=== PATIENT | male | born 1955 | race Two or more races ===

== ENCOUNTER 2018-04-22 10:12 | Inpatient (IN) | payer MEDICAID, OTHER ==
[~2018-04-22] VITALS: Ht 182.9 cm; Wt 138.0 kg
[~2018-04-22 10:12] MED LIST: ENAL10TA86; WARF7.5T
[2018-04-22] MEDS ORDERED: SODIUM CHLORIDE 0.9% 1,000 ML IV ONE (10:39)
[2018-04-22 11:20] LABS: Hematocrit 44.4 % (41.0-53.0); Hemoglobin 15.2 g/dL (13.5-17.5); Mean Corpuscular Hemoglobin 30.5 pg (28.0-32.0); Mean Corpuscular Hgb Conc. 34.1 g/dL (32.0-36.0); Mean Corpuscular Volume 89.3 fL (80.0-100.0); Platelet Count (auto) 173 10^3/uL (140-450); Red Blood Cells 4.98 10^6/uL (4.5-5.90); Red Cell Distribution Width 13.4 % (11.8-14.3); White Blood Cell 15.2 10^3/uL (4.4-10.8)
[2018-04-22 11:30] LABS: INR 3.07 (0.9-1.15); Partial Thromboplastin Time 57.4 sec (23.78-33.04); Prothrombin Time 30.8 sec (9.27-12.13)
[2018-04-22] MEDS ORDERED: VANCOMYCIN 1GM/250ML 250 ML IV ONE (11:30)
[2018-04-22] MEDS ORDERED: metroNIDAZOLE 500MG/100ML 100 ML IV ONE (11:30)
[2018-04-22 11:40] LABS: Albumin 3.2 g/dL (3.4-5.0); BUN/Creatinine Ratio 14.8; Bilirubin, Total 1.2 mg/dL (0.2-1.0); Calcium 8.7 mg/dL (8.5-10.1); Potassium 4.2 mmol/L (3.5-5.1); Total Protein 8.2 g/dL (6.4-8.2)
[2018-04-22 11:46] LABS: Magnesium 1.6 mg/dL (1.6-2.6)
[2018-04-22 12:22] LABS: Basophils % (manual) 0 (0.0-2.0); Blast Cells 0; Eosinophils % (manual) 0 (0-7); Myelocytes % 0; Promyelocytes % 0; Reactive Lymphocytes 0
[2018-04-22 13:07] LABS: Band Neutrophils % (manual) 2; Lymphocytes % (manual) 1 (10.0-50.0); Metamyelocytes % 1; Monocytes % (manual) 5 (0-12)
[2018-04-22 14:14] LABS: Alcohol, Urine < 3.0 mg/dL (0-5); Amphetamine Screen, Urine POSITIVE (NEGATIVE); Barbiturate Scree,Urine NEGATIVE (NEGATIVE); Benzodiazephine Screen, Urine NEGATIVE (NEGATIVE); Cannabinoid Screen, Urine POSITIVE (NEGATIVE); Cocaine Screen, Urine NEGATIVE (NEGATIVE); Opiate Scree,Urine NEGATIVE (NEGATIVE)
[2018-04-22 14:21] LABS: Phencyclidine Screen, Urine NEGATIVE (NEGATIVE)
[2018-04-22] MEDS ORDERED: ONDANSETRON HCL 4 MG/2 ML VIAL IV ONE (14:30)
[2018-04-22] MEDS ORDERED: PANTOPRAZOLE 40 MG TAB PO ONE (14:30)
[2018-04-22] MEDS ORDERED: LORazepam 0.5 MG TAB PO PRN (16:30)
[2018-04-22] MEDS ORDERED: NITROGLYCERIN 0.4 MG SL TAB SL PRN (16:30)
[2018-04-22] MEDS ORDERED: PROMETHAZINE HCL 25 MG/ML 1ML IV PRN (16:30)
[2018-04-22] MEDS ORDERED: LACTULOSE 20Gm/30ML SOLN PO PRN (16:30)
[2018-04-22] MEDS ORDERED: DEXTROSE (50%) 50ML SYRG IV PRN (16:30)
[2018-04-22] MEDS ORDERED: PIPERACILLIN-TAZOB 3.375GM 100 ML IV ONE (16:30)
[2018-04-22] MEDS ORDERED: MORPHINE SULF INJ 2 MG/ML SYRINGE 1ML IV PRN ×2 (16:30)
[2018-04-22] MEDS ORDERED: traMADol HCL 50 MG TAB PO PRN (16:30)
[2018-04-22] MEDS: SODIUM CHLORIDE 0.9% 1,000 ML IV SCH (17:00)
[2018-04-22 17:04] LABS: Urine Amorphous Crystal MOD /hpf (None Seen); Urine Bacteria MOD /hpf (None Seen); Urine Blood 1+ /uL (Negative); Urine Mucus FEW (None Seen); Urine Specific Gravity 1.031 (1.001-1.035); Urine WBC 75 /hpf (0 - 3); Urine WBC Clumps PRESENT /hpf (None Seen)
[2018-04-22] MEDS: ACCU-CHEK COMFORT CURVE STRIP VI SCH (18:25)
[2018-04-22 19:40] VITALS: BP 162/74
[2018-04-22] MEDS: ACETAMINOPHEN 500 MG TAB PO PRN (20:45)
[2018-04-22 23:00] VITALS: BP 134/80
[2018-04-22 23:01] VITALS: BP 162/74
[2018-04-23] VITALS (7 sets, daily range): BP systolic 112–154; BP diastolic 60–73
[2018-04-23] MEDS: PIPERACILLIN-TAZOB 3.375GM 100 ML IV SCH ×5 (00:03→23:49)
[2018-04-23] MEDS: ACCU-CHEK COMFORT CURVE STRIP VI SCH ×5 (00:03→23:57)
[2018-04-23] MEDS: SODIUM CHLORIDE 0.9% 1,000 ML IV SCH ×3 (02:35→22:45)
[2018-04-23 06:56] LABS: Basophils # (auto) 0 uL; Basophils % (auto) 0.2 % (0.0-2.0); Eosinophils # (auto) 0 uL; Hematocrit 40.8 % (41.0-53.0); Hemoglobin 13.9 g/dL (13.5-17.5); Lymphocytes # (auto) 0.4 uL; Lymphocytes % (auto) 2.5 % (10.0-50.0); Mean Corpuscular Hemoglobin 30.3 pg (28.0-32.0); Mean Corpuscular Hgb Conc. 33.9 g/dL (32.0-36.0); Mean Corpuscular Volume 89.4 fL (80.0-100.0); Monocytes # (auto) 1.4 uL; Monocytes % (auto) 7.5 % (0.0-12.0); Neutrophils # (auto) 16.4 uL; Neutrophils % (auto) 89.8 % (37.0-80.0); Nucleated Red Blood Cells % 0.1 %; Platelet Count (auto) 142 10^3/uL (140-450); Red Blood Cells 4.57 10^6/uL (4.5-5.90); Red Cell Distribution Width 13.2 % (11.8-14.3); White Blood Cell 18.3 10^3/uL (4.4-10.8)
[2018-04-23 07:10] LABS: Albumin 2.7 g/dL (3.4-5.0); BUN/Creatinine Ratio 14.6; Calcium 8.6 mg/dL (8.5-10.1); Potassium 4.5 mmol/L (3.5-5.1); Total Protein 7.3 g/dL (6.4-8.2)
[2018-04-23 08:59] LABS: INR 1.89 (0.9-1.15); Partial Thromboplastin Time 51.3 sec (23.78-33.04); Prothrombin Time 19.5 sec (9.27-12.13)
[2018-04-23] MEDS: ENALAPRIL MALEATE 10 MG TAB PO SCH (10:03)
[2018-04-23] MEDS: PANTOPRAZOLE 40 MG TAB PO SCH (10:03)
[2018-04-23] MEDS: metroNIDAZOLE 500 MG TAB PO SCH ×3 (13:28→23:49)
[2018-04-23] MEDS ORDERED: WARFARIN SODIUM 2.5 MG TAB PO ONE (17:00)
[2018-04-23] MEDS: ACETAMINOPHEN 500 MG TAB PO PRN (17:22)
[2018-04-23] MEDS: MULTIPLE VITAMIN TAB PO SCH (18:40)
[2018-04-23] MEDS: ASCORBIC ACID 500 MG TAB PO SCH (21:43)
[2018-04-23] MEDS: LOPERAMIDE HCL 2 MG CAP PO PRN (23:50)
[2018-04-24 04:56] VITALS: BP 141/71
[2018-04-24] MEDS: PIPERACILLIN-TAZOB 3.375GM 100 ML IV SCH ×3 (06:06→18:39)
[2018-04-24] MEDS: metroNIDAZOLE 500 MG TAB PO SCH (06:06)
[2018-04-24] MEDS: ACCU-CHEK COMFORT CURVE STRIP VI SCH ×3 (06:06→18:00)
[2018-04-24 06:39] LABS: Basophils # (auto) 0 uL; Basophils % (auto) 0.2 % (0.0-2.0); Eosinophils # (auto) 0 uL; Eosinophils % (auto) 0.1 % (0.0-7.0); Hematocrit 37.8 % (41.0-53.0); Hemoglobin 13.2 g/dL (13.5-17.5); Lymphocytes # (auto) 0.6 uL; Lymphocytes % (auto) 4.9 % (10.0-50.0); Mean Corpuscular Hemoglobin 31.3 pg (28.0-32.0); Mean Corpuscular Hgb Conc. 34.9 g/dL (32.0-36.0); Mean Corpuscular Volume 89.5 fL (80.0-100.0); Monocytes # (auto) 1.5 uL; Monocytes % (auto) 11.7 % (0.0-12.0); Neutrophils # (auto) 10.8 uL; Neutrophils % (auto) 83.1 % (37.0-80.0); Nucleated Red Blood Cells % 0.1 %; Platelet Count (auto) 129 10^3/uL (140-450); Red Blood Cells 4.22 10^6/uL (4.5-5.90); Red Cell Distribution Width 13.6 % (11.8-14.3)
[2018-04-24 07:05] LABS: Albumin 2.4 g/dL (3.4-5.0); Bilirubin, Total 0.8 mg/dL (0.2-1.0); Calcium 8.1 mg/dL (8.5-10.1); Magnesium 2.2 mg/dL (1.6-2.6); Potassium 4.3 mmol/L (3.5-5.1)
[2018-04-24 08:00] VITALS: BP 140/82
[2018-04-24 09:00] VITALS: BP 136/68
[2018-04-24] MEDS: SODIUM CHLORIDE 0.9% 1,000 ML IV SCH ×2 (09:00→10:30)
[2018-04-24] MEDS: ENALAPRIL MALEATE 10 MG TAB PO SCH (09:39)
[2018-04-24] MEDS: PANTOPRAZOLE 40 MG TAB PO SCH (09:39)
[2018-04-24] MEDS: ASCORBIC ACID 500 MG TAB PO SCH ×2 (09:39→21:40)
[2018-04-24] MEDS: ACETAMINOPHEN 500 MG TAB PO PRN ×2 (09:39→21:40)
[2018-04-24] MEDS: MULTIPLE VITAMIN TAB PO SCH (09:39)
[2018-04-24 10:36] LABS: INR 1.82 (0.9-1.15); Partial Thromboplastin Time 49.3 sec (23.78-33.04); Prothrombin Time 18.8 sec (9.27-12.13)
[2018-04-24] MEDS: LOPERAMIDE HCL 2 MG CAP PO PRN (12:03)
[2018-04-24 13:00] VITALS: BP 121/66
[2018-04-24 17:00] VITALS: BP 120/61
[2018-04-24] MEDS ORDERED: WARFARIN SODIUM 2.5 MG TAB PO ONE (17:00)
[2018-04-24 21:52] VITALS: BP 130/63
[2018-04-25] MEDS: ACCU-CHEK COMFORT CURVE STRIP VI SCH ×5 (00:11→23:32)
[2018-04-25] MEDS: PIPERACILLIN-TAZOB 3.375GM 100 ML IV SCH ×5 (00:11→23:32)
[2018-04-25] MEDS: SODIUM CHLORIDE 0.9% 1,000 ML IV SCH ×2 (02:55→19:50)
[2018-04-25 04:54] VITALS: BP 127/66
[2018-04-25 06:41] LABS: Basophils # (auto) 0 uL; Basophils % (auto) 0.3 % (0.0-2.0); Eosinophils # (auto) 0 uL; Eosinophils % (auto) 0.1 % (0.0-7.0); Hematocrit 36.2 % (41.0-53.0); Hemoglobin 12.3 g/dL (13.5-17.5); Lymphocytes # (auto) 0.9 uL; Lymphocytes % (auto) 5.9 % (10.0-50.0); Mean Corpuscular Hemoglobin 30.6 pg (28.0-32.0); Mean Corpuscular Volume 89.9 fL (80.0-100.0); Monocytes # (auto) 1.4 uL; Monocytes % (auto) 9.6 % (0.0-12.0); Neutrophils # (auto) 12.4 uL; Neutrophils % (auto) 84.1 % (37.0-80.0); Platelet Count (auto) 147 10^3/uL (140-450); Red Blood Cells 4.03 10^6/uL (4.5-5.90); Red Cell Distribution Width 13.3 % (11.8-14.3); White Blood Cell 14.7 10^3/uL (4.4-10.8)
[2018-04-25 06:55] LABS: BUN/Creatinine Ratio 13.8; Calcium 8.1 mg/dL (8.5-10.1); Potassium 3.8 mmol/L (3.5-5.1)
[2018-04-25 07:29] LABS: INR 2.16 (0.9-1.15); Prothrombin Time 22.1 sec (9.27-12.13)
[2018-04-25 08:00] VITALS: BP 136/68
[2018-04-25] MEDS: ENALAPRIL MALEATE 10 MG TAB PO SCH (08:53)
[2018-04-25] MEDS: PANTOPRAZOLE 40 MG TAB PO SCH (08:54)
[2018-04-25] MEDS: MULTIPLE VITAMIN TAB PO SCH (08:54)
[2018-04-25] MEDS: ASCORBIC ACID 500 MG TAB PO SCH ×2 (08:54→21:24)
[2018-04-25 09:00] VITALS: BP 125/60
[2018-04-25 13:22] VITALS: BP 155/66
[2018-04-25 17:00] VITALS: BP 153/69
[2018-04-25] MEDS ORDERED: WARFARIN SODIUM 2.5 MG TAB PO ONE (17:00)
[2018-04-25] MEDS: ACETAMINOPHEN 500 MG TAB PO PRN (17:09)
[2018-04-25] MEDS: LOPERAMIDE HCL 2 MG CAP PO PRN (21:24)
[2018-04-25 21:53] VITALS: BP 133/64
[2018-04-26] MEDS: TEMAZEPAM 15 MG CAP PO PRN (00:42)
[2018-04-26] MEDS: PIPERACILLIN-TAZOB 3.375GM 100 ML IV SCH ×2 (05:52→12:04)
[2018-04-26] MEDS: ACCU-CHEK COMFORT CURVE STRIP VI SCH ×3 (05:52→17:55)
[2018-04-26 05:54] VITALS: BP 123/59
[2018-04-26 06:35] LABS: Basophils # (auto) 0.1 uL; Basophils % (auto) 0.4 % (0.0-2.0); Eosinophils # (auto) 0.1 uL; Eosinophils % (auto) 0.7 % (0.0-7.0); Hematocrit 35.5 % (41.0-53.0); Hemoglobin 12.1 g/dL (13.5-17.5); Lymphocytes % (auto) 7.7 % (10.0-50.0); Mean Corpuscular Hemoglobin 30.6 pg (28.0-32.0); Mean Corpuscular Volume 89.9 fL (80.0-100.0); Monocytes # (auto) 1.2 uL; Monocytes % (auto) 9.2 % (0.0-12.0); Neutrophils # (auto) 10.7 uL; Platelet Count (auto) 168 10^3/uL (140-450); Red Blood Cells 3.95 10^6/uL (4.5-5.90); Red Cell Distribution Width 13.5 % (11.8-14.3); White Blood Cell 13.1 10^3/uL (4.4-10.8)
[2018-04-26 06:54] LABS: INR 3.3 (0.9-1.15); Partial Thromboplastin Time 59.8 sec (23.78-33.04)
[2018-04-26 06:57] LABS: BUN/Creatinine Ratio 12.6; Calcium 7.9 mg/dL (8.5-10.1); Potassium 4.7 mmol/L (3.5-5.1)
[2018-04-26 08:00] VITALS: BP 125/60
[2018-04-26] MEDS ORDERED: VANCOMYCIN PER PHARMACY 0 MG IV SCH (08:45)
[2018-04-26 09:00] VITALS: BP_SYST 116; BP_SYST 140; BP_DIAS 58; BP_DIAS 69
[2018-04-26] MEDS: PANTOPRAZOLE 40 MG TAB PO SCH (09:24)
[2018-04-26] MEDS: ASCORBIC ACID 500 MG TAB PO SCH ×2 (09:24→22:38)
[2018-04-26] MEDS: VANCOMYCIN 1,250 MG in D5W 5% 250 ML IV SCH ×2 (09:25→21:32)
[2018-04-26] MEDS: MULTIPLE VITAMIN TAB PO SCH (09:25)
[2018-04-26] MEDS: ENALAPRIL MALEATE 10 MG TAB PO SCH (09:25)
[2018-04-26] MEDS: SODIUM CHLORIDE 0.9% 1,000 ML IV SCH (12:28)
[2018-04-26 13:00] VITALS: BP 130/72
[2018-04-26] MEDS ORDERED: LEVOFLOXACIN 500MG 100 ML IV ONE (13:30)
[2018-04-26] MEDS ORDERED: NAPROXEN 500 MG TAB PO ONE (14:00)
[2018-04-26] MEDS: FLORASTOR (S. BOULARDII) 250 MG CAP PO SCH (14:12)
[2018-04-26 16:41] VITALS: BP 114/55
[2018-04-26 22:00] VITALS: BP 121/66
[2018-04-26] MEDS: NAPROXEN 500 MG TAB PO SCH (22:38)
[2018-04-26] MEDS: CLINDAMYCIN 600MG IV 50 ML IV SCH (23:51)
[2018-04-27] MEDS: ACCU-CHEK COMFORT CURVE STRIP VI SCH ×5 (00:02→23:19)
[2018-04-27] MEDS: SODIUM CHLORIDE 0.9% 1,000 ML IV SCH ×2 (04:55→11:15)
[2018-04-27 05:00] VITALS: BP 127/67
[2018-04-27] MEDS: CLINDAMYCIN 600MG IV 50 ML IV SCH ×3 (07:00→21:54)
[2018-04-27 07:05] LABS: Hematocrit 35.8 % (41.0-53.0); Hemoglobin 12.3 g/dL (13.5-17.5); Mean Corpuscular Hemoglobin 30.8 pg (28.0-32.0); Mean Corpuscular Hgb Conc. 34.2 g/dL (32.0-36.0); Mean Corpuscular Volume 90.2 fL (80.0-100.0); Platelet Count (auto) 217 10^3/uL (140-450); Red Blood Cells 3.97 10^6/uL (4.5-5.90); Red Cell Distribution Width 13.3 % (11.8-14.3); White Blood Cell 11.9 10^3/uL (4.4-10.8)
[2018-04-27 07:11] LABS: Basophils % (manual) 0 (0.0-2.0); Blast Cells 0; Eosinophils % (manual) 0 (0-7); Metamyelocytes % 0; Myelocytes % 0; Promyelocytes % 0; Reactive Lymphocytes 0
[2018-04-27 07:21] LABS: Partial Thromboplastin Time 68.6 sec (23.78-33.04); Prothrombin Time 42.2 sec (9.27-12.13)
[2018-04-27 07:24] LABS: BUN/Creatinine Ratio 15.4; Calcium 8.5 mg/dL (8.5-10.1); Potassium 4.3 mmol/L (3.5-5.1)
[2018-04-27 07:27] LABS: INR 4.28 (0.9-1.15)
[2018-04-27 07:46] LABS: Band Neutrophils % (manual) 2; Lymphocytes % (manual) 11 (10.0-50.0); Monocytes % (manual) 11 (0-12)
[2018-04-27 08:00] VITALS: BP 116/58
[2018-04-27] MEDS: VANCOMYCIN 1,250 MG in D5W 5% 250 ML IV SCH (08:52)
[2018-04-27] MEDS: FLORASTOR (S. BOULARDII) 250 MG CAP PO SCH (09:23)
[2018-04-27] MEDS: MULTIPLE VITAMIN TAB PO SCH (09:23)
[2018-04-27] MEDS: PANTOPRAZOLE 40 MG TAB PO SCH (09:23)
[2018-04-27] MEDS: ENALAPRIL MALEATE 10 MG TAB PO SCH (09:23)
[2018-04-27] MEDS: ASCORBIC ACID 500 MG TAB PO SCH ×2 (09:23→23:19)
[2018-04-27] MEDS: NAPROXEN 500 MG TAB PO SCH ×2 (09:23→23:19)
[2018-04-27 09:25] VITALS: BP 122/71
[2018-04-27] MEDS ORDERED: LEVOFLOXACIN 500MG 100 ML IV SCH (10:00)
[2018-04-27 13:45] VITALS: BP 121/71
[2018-04-27 16:59] VITALS: BP 110/64
[2018-04-27 22:00] VITALS: BP 133/78
[2018-04-27] MEDS: VANCOMYCIN 1,500 MG in D5W 5% 250 ML IV SCH (22:43)
[2018-04-28] MEDS: TEMAZEPAM 15 MG CAP PO PRN (01:29)
[2018-04-28] MEDS: CLINDAMYCIN 600MG IV 50 ML IV SCH ×3 (05:22→21:17)
[2018-04-28] MEDS: ACCU-CHEK COMFORT CURVE STRIP VI SCH ×3 (05:25→17:34)
[2018-04-28 05:30] VITALS: BP 122/65
[2018-04-28] MEDS: SODIUM CHLORIDE 0.9% 1,000 ML IV SCH (06:55)
[2018-04-28 07:05] LABS: Hematocrit 35.9 % (41.0-53.0); Hemoglobin 12.4 g/dL (13.5-17.5); Mean Corpuscular Hemoglobin 31.3 pg (28.0-32.0); Mean Corpuscular Hgb Conc. 34.5 g/dL (32.0-36.0); Mean Corpuscular Volume 90.8 fL (80.0-100.0); Platelet Count (auto) 249 10^3/uL (140-450); Red Blood Cells 3.95 10^6/uL (4.5-5.90); Red Cell Distribution Width 13.4 % (11.8-14.3); White Blood Cell 9.7 10^3/uL (4.4-10.8)
[2018-04-28 07:06] LABS: Basophils % (manual) 0 (0.0-2.0); Blast Cells 0; Metamyelocytes % 0; Myelocytes % 0; Promyelocytes % 0; Reactive Lymphocytes 0
[2018-04-28 07:29] VITALS: BP 119/59
[2018-04-28 07:29] LABS: Albumin 2.1 g/dL (3.4-5.0); BUN/Creatinine Ratio 14.7; Bilirubin, Total 0.5 mg/dL (0.2-1.0); Calcium 8.1 mg/dL (8.5-10.1); Potassium 4.5 mmol/L (3.5-5.1); Total Protein 6.9 g/dL (6.4-8.2)
[2018-04-28 07:35] LABS: Partial Thromboplastin Time 72.3 sec (23.78-33.04)
[2018-04-28 07:36] LABS: Band Neutrophils % (manual) 2; Eosinophils % (manual) 3 (0-7); Lymphocytes % (manual) 16 (10.0-50.0); Monocytes % (manual) 4 (0-12)
[2018-04-28] MEDS: FLORASTOR (S. BOULARDII) 250 MG CAP PO SCH (10:27)
[2018-04-28] MEDS: MULTIPLE VITAMIN TAB PO SCH (10:27)
[2018-04-28] MEDS: ASCORBIC ACID 500 MG TAB PO SCH ×2 (10:27→21:30)
[2018-04-28] MEDS: PANTOPRAZOLE 40 MG TAB PO SCH (10:27)
[2018-04-28] MEDS: ENALAPRIL MALEATE 10 MG TAB PO SCH (10:27)
[2018-04-28] MEDS: NAPROXEN 500 MG TAB PO SCH ×2 (10:27→21:30)
[2018-04-28] MEDS: VANCOMYCIN 1,500 MG in D5W 5% 250 ML IV SCH (10:28)
[2018-04-28] MEDS: LEVOFLOXACIN 500MG 100 ML IV SCH (12:00)
[2018-04-28 12:26] VITALS: BP 133/64
[2018-04-28 16:46] VITALS: BP 94/61
[2018-04-28 22:00] VITALS: BP 151/70
[2018-04-29] MEDS: SODIUM CHLORIDE 0.9% 1,000 ML IV SCH ×2 (03:42→23:15)
[2018-04-29] MEDS: CLINDAMYCIN 600MG IV 50 ML IV SCH ×3 (04:59→21:16)
[2018-04-29 05:30] VITALS: BP 142/62
[2018-04-29] MEDS: ACCU-CHEK COMFORT CURVE STRIP VI SCH ×4 (06:00→17:28)
[2018-04-29 07:14] LABS: Basophils # (auto) 0 uL; Basophils % (auto) 0.5 % (0.0-2.0); Eosinophils # (auto) 0.2 uL; Eosinophils % (auto) 3.1 % (0.0-7.0); Hematocrit 33.1 % (41.0-53.0); Hemoglobin 11.6 g/dL (13.5-17.5); Lymphocytes % (auto) 12.8 % (10.0-50.0); Mean Corpuscular Hemoglobin 31.8 pg (28.0-32.0); Mean Corpuscular Hgb Conc. 34.9 g/dL (32.0-36.0); Mean Corpuscular Volume 91.1 fL (80.0-100.0); Monocytes # (auto) 0.7 uL; Monocytes % (auto) 8.8 % (0.0-12.0); Neutrophils # (auto) 5.6 uL; Neutrophils % (auto) 74.8 % (37.0-80.0); Platelet Count (auto) 251 10^3/uL (140-450); Red Blood Cells 3.63 10^6/uL (4.5-5.90); Red Cell Distribution Width 13.7 % (11.8-14.3); White Blood Cell 7.5 10^3/uL (4.4-10.8)
[2018-04-29 07:31] LABS: Prothrombin Time 40.8 sec (9.27-12.13)
[2018-04-29 07:39] LABS: Albumin 1.9 g/dL (3.4-5.0); BUN/Creatinine Ratio 13.2; Bilirubin, Total 0.4 mg/dL (0.2-1.0); Calcium 7.9 mg/dL (8.5-10.1); INR 4.13 (0.9-1.15); Potassium 4.6 mmol/L (3.5-5.1); Total Protein 6.7 g/dL (6.4-8.2)
[2018-04-29 07:40] LABS: Partial Thromboplastin Time 71.7 sec (23.78-33.04)
[2018-04-29 08:32] VITALS: BP 135/69
[2018-04-29] MEDS: NAPROXEN 500 MG TAB PO SCH ×2 (09:40→21:29)
[2018-04-29] MEDS: FLORASTOR (S. BOULARDII) 250 MG CAP PO SCH (09:40)
[2018-04-29] MEDS: PANTOPRAZOLE 40 MG TAB PO SCH (09:40)
[2018-04-29] MEDS: MULTIPLE VITAMIN TAB PO SCH (09:40)
[2018-04-29] MEDS: ASCORBIC ACID 500 MG TAB PO SCH ×2 (09:40→21:29)
[2018-04-29] MEDS: ENALAPRIL MALEATE 10 MG TAB PO SCH (09:41)
[2018-04-29 12:41] VITALS: BP 147/71
[2018-04-29] MEDS: LEVOFLOXACIN 500MG 100 ML IV SCH (14:27)
[2018-04-29 16:53] VITALS: BP 140/76
[2018-04-29 22:00] VITALS: BP 156/78
[2018-04-30] MEDS: CLINDAMYCIN 600MG IV 50 ML IV SCH (04:44)
[2018-04-30 05:00] VITALS: BP 149/86
[2018-04-30] MEDS: ACCU-CHEK COMFORT CURVE STRIP VI SCH ×2 (05:55)
[2018-04-30 07:11] LABS: Basophils # (auto) 0 uL; Basophils % (auto) 0.5 % (0.0-2.0); Eosinophils # (auto) 0.2 uL; Eosinophils % (auto) 2.2 % (0.0-7.0); Hemoglobin 11.6 g/dL (13.5-17.5); Lymphocytes # (auto) 0.9 uL; Lymphocytes % (auto) 11.9 % (10.0-50.0); Mean Corpuscular Hgb Conc. 34.1 g/dL (32.0-36.0); Mean Corpuscular Volume 90.9 fL (80.0-100.0); Monocytes # (auto) 0.6 uL; Monocytes % (auto) 7.6 % (0.0-12.0); Neutrophils % (auto) 77.8 % (37.0-80.0); Nucleated Red Blood Cells % 0.1 %; Platelet Count (auto) 270 10^3/uL (140-450); Red Blood Cells 3.74 10^6/uL (4.5-5.90); Red Cell Distribution Width 13.7 % (11.8-14.3); White Blood Cell 7.7 10^3/uL (4.4-10.8)
[2018-04-30 07:23] LABS: Potassium 5.2 mmol/L (3.5-5.1)
[2018-04-30 07:30] LABS: Albumin 2.1 g/dL (3.4-5.0); BUN/Creatinine Ratio 12.7; Calcium 8.3 mg/dL (8.5-10.1)
[2018-04-30 07:32] LABS: Bilirubin, Total 0.5 mg/dL (0.2-1.0); Total Protein 7.3 g/dL (6.4-8.2)
[2018-04-30] MEDS: MULTIPLE VITAMIN TAB PO SCH (09:23)
[2018-04-30] MEDS: FLORASTOR (S. BOULARDII) 250 MG CAP PO SCH (09:23)
[2018-04-30] MEDS: PANTOPRAZOLE 40 MG TAB PO SCH (09:23)
[2018-04-30] MEDS: NAPROXEN 500 MG TAB PO SCH (09:23)
[2018-04-30] MEDS: ASCORBIC ACID 500 MG TAB PO SCH (09:24)
[2018-04-30] MEDS: ENALAPRIL MALEATE 10 MG TAB PO SCH (09:25)
[2018-04-30] MEDS ORDERED: CLIN1CAP4 PO (10:02)
[2018-04-30] MEDS ORDERED: SACC250C PO (10:02)
[2018-04-30] MEDS ORDERED: LEVO500T21 PO (10:02)
[2018-04-30 10:36] VITALS: BP 142/85
[2018-04-30] MEDS ORDERED: Pro-Stat SF 30ml Vanilla PO SCH (12:00)
== END 2018-04-30 11:41 | disposition home or self-care (01) | DRG 720 ==
LOC: ER 10:12 → EDBD 10:12 → TELE 10:13 → TELE-EAST 19:38
PROVIDERS: ADMIT Internal Medicine; ATTEND Internal Medicine
DX: A41.9 Sepsis, unspecified organism (principal); N17.0 Acute kidney failure with tubular necrosis; L03.116 Cellulitis of left lower limb; N18.3 Chronic kidney disease, stage 3 (moderate); E44.1 Mild protein-calorie malnutrition; T45.515A Adverse effect of anticoagulants, initial encounter; E87.1 Hypo-osmolality and hyponatremia; E66.01 Morbid (severe) obesity due to excess calories; F12.10 Cannabis abuse, uncomplicated; F15.10 Other stimulant abuse, uncomplicated; I87.2 Venous insufficiency (chronic) (peripheral); L97.329 Non-pressure chronic ulcer of left ankle with unspecified severity; R19.7 Diarrhea, unspecified; N39.0 Urinary tract infection, site not specified; R73.9 Hyperglycemia, unspecified; I12.9 Hypertensive chronic kidney disease with stage 1 through stage 4 chronic kidney disease, or unspecified chronic kidney disease; Z79.899 Other long term (current) drug therapy; Z79.01 Long term (current) use of anticoagulants; Z86.718 Personal history of other venous thrombosis and embolism; Z83.3 Family history of diabetes mellitus; Z68.41 Body mass index [BMI] 40.0-44.9, adult; Y92.89 Other specified places as the place of occurrence of the external cause; Z71.51 Drug abuse counseling and surveillance of drug abuser
CPT/HCPCS: 36415; 71046; 73590; 73700; 80048; 80053; 80061; 80202; 80307; 81001; 82270; 82962; 83036; 83605; 83735; 83880; 84443; 84484; 85007; 85025; 85027; 85048; 85379; 85610; 85652; 85730; 87040; 87045; 87086; 87205; 87493; 87899; 93005; 93306; 93926; 93971; 94761; 96365; 96367; 96368; 96375; J1956; J2405; J2543; J3490; J7060